=== PATIENT | male | born 1975 | race Caucasian/White ===

== ENCOUNTER → 2017-06-19 | Day surgery (SDC) | payer BC ==
[2017-06-15 08:07] VITALS: Ht 177.8 cm; Wt 175.0 kg
[~2017-06-19] VITALS: Ht 177.8 cm; Wt 175.0 kg
[~2017-06-19] MED LIST: AZEL30SP NAE; CETI10TA10 PO; FLUT0.15 NAE; GLC/500 PO; LIDOCAINE HCL 2% 2 ML VIAL (20MG/ML) ONE; LISI-789 PO; MONT1TAB3 PO; MTR600X PO; OMEP40CA PO; ONDANSETRON INJ 2 MG/ML 2 ML VIAL IV PRN; PROPOFOL IV EMULSION 10 MG/ML 20 ML VIAL IV ONE
[2017-06-19 10:07] VITALS: TEMP 36.8
--- NOTE | 2017-06-19 10:12 | Endo History and Physical ---
History & Physical Date of Service: Jun 19, 2017. Chief Complaint: Cowan's Referring Physician: Dr. Wilma Schaefer History of Present Illness The patient presents for follow-up of an esophageal nodule. This was last noted about 7 months ago at which time biopsy showed evidence of inflammatory changes only. He denies having any difficulty swallowing or pain with swallowing. Past Surgical History Hx Cardiac Surgery: No Hx Internal Defibrillator: No Hx Pacemaker: No Hx Abdominal Surgery: No Hx Post-Op Nausea and Vomiting: No Hx Cancer Surgery: No Hx Thoracic Surgery: No Hx Orthopedic: Yes (LT BICEP TENDON REPAIR, RT/LT KNEE ARTHROSCOPY) Hx Urinary Tract Surgery: No Family History None Social History Smoking Status: Never Smoker Hx Substance Use: No Hx Alcohol Use: Yes (RARELY) Allergies Coded Allergies: No Known Allergies (Verified , NKDA, 06/15/17) Current Medications Reported Home Medications Medications Dose Route/Sig Max Daily Dose Days Date Category Zestril (Lisinopril) 2.5 Mg Tab 1 Tab PO QAM 06/15/17 Reported Glucophage (Metformin Hcl) 500 Mg Tab 2 Tabs PO QAM 06/15/17 Reported Dymista (Azelastine Hcl-Fluticasone Pro) 1 Spr Spr 1 [place] ELY BID 06/15/17 Reported Zyrtec (Cetirizine Hcl) 10 Mg Tab 10 Mg PO HS 10/18/16 Reported Prilosec (Omeprazole) 40 Mg Capcr 40 Mg PO QAM 10/18/16 Reported Singulair (Montelukast Sodium) 10 Mg Tab 10 Mg PO HS 08/09/16 Reported Ibuprofen 600 Mg Tab 600 Mg PO Q4-6H PRN 10/08/15 Reported Flonase Allergy Relief (Fluticasone Propionate (Nasal)) 50 Mcg/Act Spr 1-2 Sprays ELY QAM 10/08/15 Reported Vital Signs Weight (Kilograms): 175 Height (Feet): 5 Height (Inches): 10 Date Time Temp Pulse Resp B/P (MAP) Pulse Ox O2 Delivery O2 Flow Rate FiO2 06/19/17 10:07 36.8 61 20 123/63 (83) 97 Room Air Physical Exam General Appearance: no apparent distress Respiratory/Chest: Auscultation: breath sounds normal Cardiovascular: Heart Auscultation: RRR Abdomen: Inspection & Palpation: soft, non-distended Assessment and Plan The patient presents for upper endoscopy for follow-up evaluation of an esophageal nodule. If the lesion is still present we could proceed with an endoscopic mucosal resection. We have discussed risks and benefits of upper endoscopy and EMR to include bleeding, infection, perforation and discomfort.
--- NOTE | 2017-06-19 11:01 | Discharge Instructions ---
Endoscopy Patient Instructions Date / Procedure(s) Performed Jun 19, 2017. EGD Allergy Information Coded Allergies: No Known Allergies (Verified , NKDA, 06/15/17) Discharge Date / Findings Jun 19, 2017. Small hiatal hernia Possible Barretts Esophagus Medication Instructions Stopped Medication(s): last dose Metformin Monday Reported Home Medications Medications Dose Route/Sig Max Daily Dose Days Date Category Zestril (Lisinopril) 2.5 Mg Tab 1 Tab PO QAM 06/15/17 Reported Glucophage (Metformin Hcl) 500 Mg Tab 2 Tabs PO QAM 06/15/17 Reported Dymista (Azelastine Hcl-Fluticasone Pro) 1 Spr Spr 1 [place] ELY BID 06/15/17 Reported Zyrtec (Cetirizine Hcl) 10 Mg Tab 10 Mg PO HS 10/18/16 Reported Prilosec (Omeprazole) 40 Mg Capcr 40 Mg PO QAM 10/18/16 Reported Singulair (Montelukast Sodium) 10 Mg Tab 10 Mg PO HS 08/09/16 Reported Ibuprofen 600 Mg Tab 600 Mg PO Q4-6H PRN 10/08/15 Reported Flonase Allergy Relief (Fluticasone Propionate (Nasal)) 50 Mcg/Act Spr 1-2 Sprays ELY QAM 10/08/15 Reported Provider Instructions Activity Restrictions - No exercising or heavy lifting for 24 hours. - Do not drink alcohol the day of the procedure. - Do not drive a car or operate machinery until the day after the procedure. - Do not make any important decisions or sign important papers in 24 hours after the procedure. Following Day: - Return to full activity which may include returning to work/school. Diet Start your diet with liquids and light foods (jello, soup, juice, toast). Then eat your usual diet if not nauseated. Treatment For Common After Affects For mild abdominal pain, bloating, or excessive gas: - Rest - Eat lightly - Lie on right side Follow-Up Information Follow-up with Dr. Wilma Schaefer as scheduled If pathology shows Barretts Esophagus will plan for a repeat upper endoscopy in 3 years. Anesthesia Information What You Should Know You have had a procedure that required some medicine to reduce anxiety and discomfort. This treatment is called moderate sedation. After receiving the treatment, you may be sleepy, but you will be able to breathe on your own. The effects of the treatment may last for several hours. Follow these instructions along with Activity/Diet recommendations noted above: * Do NOT do anything where dizziness or clumsiness would be dangerous. * Rest quietly at home today, then you can be up and about tomorrow. * Have a responsible person stay with you the rest of today. * You may have had an I.V. today. If so, you may take the dressing off later today. Recommendations Call your doctor if: * Trouble breathing * Continuous vomiting for more than 24 hours * Temperature above 101 degrees * Severe abdominal pain or bloating * Pain not relieved by pain medicine ordered * There is increased drainage or redness from any incision * A large amount of rectal bleeding greater than 2-3 tablespoons. (If you had a polyp/s removed or have hemorrhoids, a small amount of blood - from the rectum is to be expected.) * You have any unanswered questions or concerns. IN THE EVENT OF A SERIOUS EMERGENCY, GO TO THE NEAREST EMERGENCY ROOM Your discharge instructions were prepared by provider Sammy Perdoom. Patient Instructions Signature Page Tariq Gay Patient (or Guardian) Signature/Date: I have read and understand the instructions given to me by my caregivers. Caregiver/RN/Doctor Signature/Date: The above-named patient and/or guardian has received patient instructions on this date. + Original Patient Signature Page (only) stays with chart. Please make copy for patient.
--- NOTE | 2017-06-19 11:05 | GI REPORT ---
Procedure Date: 06/19/2017 10:42 AM Procedure: Upper GI endoscopy Indications: Suspected Cowan's esophagus Medicines: Monitored Anesthesia Care Complications: No immediate complications. Estimated blood loss: Minimal. Estimated Blood Loss: Estimated blood loss was minimal. Procedure: Pre-Anesthesia Assessment: - Prior to the procedure, a History and Physical was performed, and patient medications, allergies and sensitivities were reviewed. The patient's tolerance of previous anesthesia was reviewed. - The risks and benefits of the procedure and the sedation options and risks were discussed with the patient. All questions were answered and informed consent was obtained. - Patient identification and proposed procedure were verified prior to the procedure by the physician, the nurse and the bakelite molder. The procedure was verified in the procedure room. - Pre-procedure physical examination revealed no contraindications to sedation. - ASA Grade Assessment: III - A patient with severe systemic disease. - After reviewing the risks and benefits, the patient was deemed in satisfactory condition to undergo the procedure. - The anesthesia plan was to use monitored anesthesia care (MAC). - Immediately prior to administration of medications, the patient was re-assessed for adequacy to receive sedatives. - The heart rate, respiratory rate, oxygen saturations, blood pressure, adequacy of pulmonary ventilation, and response to care were monitored throughout the procedure. - The physical status of the patient was re-assessed after the procedure. After obtaining informed consent, the endoscope was passed under direct vision. Throughout the procedure, the patient's blood pressure, pulse, and oxygen saturations were monitored continuously. The scope was introduced through the mouth, and advanced to the third part of duodenum. The upper GI endoscopy was accomplished without difficulty. The patient tolerated the procedure well. Findings: The upper third of the esophagus and middle third of the esophagus were normal. The esophagus and gastroesophageal junction were examined with white light. There were esophageal mucosal changes suspicious for Cowan's esophagus. These changes involved the mucosa at the upper extent of the gastric folds (39 cm from the incisors) extending to the Z-line (38 cm from the incisors). Circumferential salmon-colored mucosa was present from 38 to 39 cm. The maximum longitudinal extent of these esophageal mucosal changes was 1 cm in length. Mucosa was biopsied with a cold forceps for histology. One specimen bottle was sent to pathology. Estimated blood loss was minimal. A small hiatus hernia was found. The proximal extent of the gastric folds (end of tubular esophagus) was 39 cm from the incisors. The hiatal narrowing was 40 cm from the incisors. The Z-line was 38 cm from the incisors. The entire examined stomach was normal. The examined duodenum was normal. Impression: - Normal upper third of esophagus and middle third of esophagus. - Esophageal mucosal changes suspicious for Cowan's esophagus. Biopsied. - Small hiatus hernia. - Normal stomach. - Normal examined duodenum. Recommendation: - Discharge patient to home (ambulatory). - Advance diet as tolerated today. - Await pathology results. - Continue present medications. - Repeat the upper endoscopy in 3 years for surveillance based on pathology results. - Return to GI office PRN. Sammy Perdomo D.O. Sammy Perdomo DO 06/19/2017 11:05:23 AM This report has been signed electronically. Note Initiated On: 06/19/2017 10:42 AM I attest to the content of the Intraoperative Record and orders documented therein, exceptions below
[2017-06-19 11:35] VITALS: BP 143/81; PULSE 58; O2SAT 100
--- NOTE | 2017-06-19 11:42 | Anesthesiology Progress Note ---
Anesthesia Post Op Note Date & Time Jun 19, 2017 at 11:41 Vital Signs Pain Intensity: 0 Vital Signs Past 12 Hours Date Time Temp Pulse Resp B/P (MAP) Pulse Ox O2 Delivery O2 Flow Rate FiO2 06/19/17 11:35 58 18 143/81 (101) 100 Room Air 06/19/17 11:20 63 18 126/61 (82) 98 Room Air 06/19/17 11:05 63 18 90/52 (65) 97 Room Air 06/19/17 10:07 36.8 61 20 123/63 (83) 97 Room Air Notes Mental Status: alert / awake / arousable, participated in evaluation Pt Amnestic to Procedure: Yes Nausea / Vomiting: adequately controlled Pain: adequately controlled Airway Patency, RR, SpO2: stable & adequate BP & HR: stable & adequate Hydration State: stable & adequate Anesthetic Complications: no major complications apparent
== END | disposition home or self-care (01) ==
LOC: C.GI 09:18
PROVIDERS: ATTEND Internal Medicine Gastroenterology
DX: K22.70 Barrett's esophagus without dysplasia (principal); K29.70 Gastritis, unspecified, without bleeding; K44.9 Diaphragmatic hernia without obstruction or gangrene; G47.33 Obstructive sleep apnea (adult) (pediatric); I10 Essential (primary) hypertension; K21.9 Gastro-esophageal reflux disease without esophagitis; M19.90 Unspecified osteoarthritis, unspecified site; E11.9 Type 2 diabetes mellitus without complications; E66.01 Morbid (severe) obesity due to excess calories